=== PATIENT | female | born 1950 | race Caucasian/White ===

== ENCOUNTER 2016-10-02 12:43 | Day surgery (SDC) | payer OTHER ==
[2016-10-02] MEDS ORDERED: ACETAMINOPHEN 325 MG TABLET (FP) PO ONE (13:50)
[2016-10-02 14:14] VITALS: TEMP 98.3
[2016-10-02] MEDS ORDERED: ZOLEDRONIC ACID/MAN/WATER 100 ML IVPB ONE (14:15)
[2016-10-02 15:32] VITALS: BP 146/79; PULSE 91
== END 2016-10-02 15:34 | disposition home or self-care (01) ==
LOC: JINFUSION 12:43 → J7W 12:44 → JINFUSION 15:34
PROVIDERS: ATTEND Internal Medicine Endocrinology, Diabetes & Metabolism
PROC: 3E033GC Introduction of Other Therapeutic Substance into Peripheral Vein, Percutaneous Approach (ICD-10-PCS; principal; 2016-10-02)
DX: M81.0 Age-related osteoporosis without current pathological fracture (principal)
CPT/HCPCS: 96365; J3489